=== PATIENT | female | born 1935 | race Caucasian/White ===

== ENCOUNTER 2020-11-23 15:05 | Emergency (ER) | payer MEDICARE, SELFPAY ==
[2020-11-23] VITALS (7 sets, daily range): BP systolic 109–149; BP diastolic 61–91; PULSE 70–74; RESP 14–19; TEMP 36.3–36.7; O2SAT 97–100
--- NOTE | ~2020-11-23 | XR_ITS ---
EXAMINATION: XR chest 1V portable DATE: 11/23/2020 16:47 INDICATION: Shortness of breath. TECHNIQUE: A single frontal view of the chest was obtained. COMPARISON: Chest single view 07/23/2019 FINDINGS: There is mild atelectasis in right lower lung zone. No pleural effusion or pneumothorax. Ca rdiomegaly is noted. There is a left chest pacer with leads in right atrium and right ventricle. Ther e are 2 additional retained leads in right ventricle. IMPRESSION: 1. Mild atelectasis in right lower lung zone. 2. Cardiomegaly. Reviewed, dictated and finalized at location A. ATION SPECIALIST
--- NOTE | 2020-11-23 16:08 | ECG_ITS ---
Measurements Intervals [place] Rate: 70 P: ME: 0 QRS: 180 QRSD: 155 T: 180 QT: 437 QTc: 472 Interpretive Statements ELECTRONIC VENTRICULAR PACEMAKER NO FURTHER INTERPRETATION IS POSSIBLE ATYPICAL ECG Electronically Signed On 11-23-2020 17:26:21 CALENDER FEEDER by Pradeep Peralta D.O.
[2020-11-23 16:25] LABS: Basophils Percent Auto 0.1 % (0.2-1.2); Eosinophils Percent Auto 0.1 % (0-4.4); Hematocrit 34.3 % (37.0-47.0); Hemoglobin 11.3 g/dL (12.0-15.0); Immature Granulocyte Absolute 0.26 K/mm3 (0.00-0.031); Lymphocytes Percent Auto 8.3 % (18.3-44.2); Mean Corpuscular HGB Conc 32.9 g/dl (32-36); Mean Corpuscular Hemoglobin 32.8 pg (26-34); Mean Corpuscular Volume 99.7 fl (80-100); Mean Platelet Volume 11.8 fl (7.4-10.4); Monocytes Absolute Auto 0.7 K/mm3 (0.1-0.6); Monocytes Percent Auto 5.1 % (2.6-8.5); Neutrophils Absolute Auto 11.2 K/mm3 (1.3-6.7); Neutrophils Percent Auto 84.4 % (45.5-73.1); Platelet Count Result 166 k/mm3 (150-375); Red Blood Count 3.44 M/mm3 (4.2-5.4); Red Cell Distribution Width 16.6 % (11.5-14.5); White Blood Count 13.2 K/mm3 (4.5-10.0)
[2020-11-23 16:37] LABS: Anion Gap 3 mmol/L (8-16); Blood Urea Nitrogen 34 mg/dL (7-17); Calcium 9.8 mg/dL (8.4-10.2); Carbon Dioxide 30 mmol/L (22-30); Chloride 104 mmol/L (98-107); Estimated CRCL calculation 32 ml/min; Estimated Glomerular Filt Rate 47; Glucose 124 mg/dL (65-105); Sodium 137 mmol/L (137-145)
--- NOTE | 2020-11-23 16:55 | ED.SOB ---
HPI - SOB/Dyspnea General Chief Complaint: Shortness of Breath/Dyspnea Stated Complaint: sob Time Seen by Provider: 11/23/20 16:42 Source: patient Mode of arrival: ambulatory Limitations: no limitations History of Present Illness HPI Narrative: An 85-year-old female presents to the emergency department today with complaints of shortness of breath. Patient states that she sitting, and at rest she feels fine. She notes when she gets up and moves around she gets very dyspneic. She denies orthopnea. Patient does state that she has a history of congestive heart failure and has been taking her diuretics and other medications appropriately. She does endorse a little chest pain states that it is generalized and nonspecific. She denies any fevers, chills, cough or abdominal symptoms. She denies any peripheral swelling as well. Related Data Allergies Allergy/AdvReac Type Severity Reaction Status Date / Time No Known Allergies Allergy Verified 11/23/20 16:26 Review of Systems Review of Systems: Narrative: CONSTITUTIONAL: Denies fever, chills, or sweats. EYES: Denies visual changes, redness, or discharge. ENT: Denies rhinorrhea, congestion, sore throat, or otalgia. CARDIOVASCULAR: Denies palpitations, or edema. Patient does endorse chest tightness. RESPIRATORY: Endorses dyspnea with exertion. GASTROINTESTINAL: Denies abdominal pain, nausea, vomiting, or diarrhea. GENITOURINARY: Denies dysuria or hematuria. SKIN: Denies rash or itching. MUSCULOSKELETAL: Denies back pain, joint pain, or myalgia. NEUROLOGIC: Denies headache, numbness, dizziness, or weakness. PSYCHIATRIC: Denies anxiety or depression. [facility], [facility] Family History Family History Mother Family history of malignant neoplasm of cervix Father Family history of coronary artery disease Hypertension Social History Social History Smoking status: Never smoker Alcohol intake: current Exam Narrative: Exam Narrative: GENERAL: Well-appearing, well-nourished, and in no acute distress. HEAD: Normocephalic, atraumatic. EYES: PERRLA and EOMI. ENT: Nares clear, no rhinorrhea or epistaxis. Mucous membranes moist. Oropharynx without tonsillar hypertrophy exudate or other lesions. Bilateral TMs pearly [place] nonbulging NECK: Supple. No adenopathy or masses. No carotid bruits or JVD CHEST: Clear to auscultation. No respiratory distress. No wheezes rales or rhonchi HEART: Regular rate and rhythm. No murmur heard. Normal peripheral pulses. ABDOMEN: Soft, nontender, nondistended, normal active bowel sounds. EXTREMITIES: Normal range of motion. No edema. SKIN: Warm, dry, no rash. NEURO: No focal deficits. Alert and oriented x3. PSYCH: Normal mood and affect. Course Reevaluation(s) Reevaluation #1: Patient still resting comfortably at this time. I had a discussion with the patient, her son and daughter regarding disposition options. Patient while at rest her vital signs are normal. I do feel that she is likely suffering from a CHF exacerbation. My treatment plan and offer was an IV bigger dose of her Lasix and follow-up with her primary care physician or head of marketing. I did offer to bring her in for observation but explained that the hospital is very full and while I would be more than happy to admit her, she would likely be staying in the ER for most of the night. Patient patient is weighed the options with her son and daughter all were in agreement for a bigger dose of IV Lasix, discharge home and follow-up. Time: 18:34 Vital Signs Vital signs: Vital Signs Temperature 36.3 C L 11/23/20 16:09 Pulse Rate 70 11/23/20 16:09 Respiratory Rate 14 11/23/20 16:09 Blood Pressure 144/91 H 11/23/20 16:09 Pulse Oximetry 99 11/23/20 16:09 Temperature 36.3 C L 11/23/20 16:09 Pulse Rate 70 11/23/20 20:10 Respiratory Rate 19 11/23/20 20:10 Blood Pressure 123/67 01
[2020-11-23 18:05] LABS: NT Pro B Type Natriuretic Pept 3570 PG/ML (5-100)
[2020-11-23] MEDS: FUROSEMIDE INJ 100 MG/10 ML VIAL 80 MG IV PUSH (18:52)
== END 2020-11-23 20:59 | disposition home or self-care (01) ==
PROVIDERS: Emergency Medicine; Emergency Provider Emergency Medicine; PCP Internal Medicine
DX: I50.9 Heart failure, unspecified (principal); Z95.0 Presence of cardiac pacemaker; I51.7 Cardiomegaly; R91.8 Other nonspecific abnormal finding of lung field
CPT/HCPCS: 36415; 71045; 80048; 83880; 84484; 85025; 93005; 96374; 99284; J1940

== ENCOUNTER → 2020-12-18 12:51 | Outpatient (CLI) | payer MEDICARE, SELFPAY ==
--- NOTE | ~2020-12-18 | CT_ITS ---
EXAMINATION: CT lumbar spine wo [facility] EXAM DATE: 12/18/2020 13:11 INDICATION: Lumbar radiculopathy. Bilateral leg and hip pain. TECHNIQUE: Spiral CT of the lumbar spine was performed without contrast. Axial, coronal and sagittal images were reviewed. The dose-length product (DLP) for this examination was 754.75 mGy-cm. The e xposure was tailored according to patient size (auto mA exposure control), and iterative reconstructi on (ASIR) was used as additional dose reduction technique. There is no prior study for comparison. FINDINGS: Pacemaker/AICD device. There is moderate to severe disc disease from L2 through S1, moderat e at L1-2. There is 6 mm anterolisthesis L4 on L5 and 3 mm anterolisthesis L5 on S1. No spondylolysis . Vertebral body heights are maintained. There are no acute fractures identified. Paraspinal soft tis meghann is unremarkable. Level by level evaluation: T11-12: There is a mild diffuse disc bulge. Facet arthropathy: Mild. Neural foraminal stenosis: Mild left. Central canal stenosis: No stenosis. T12-L1: There is a mild diffuse disc bulge. Facet arthropathy: Mild. Neural foraminal stenosis: No stenosis. Central canal stenosis: No stenosis. L1-L2: There is a moderate diffuse disc bulge. Facet arthropathy: Moderate. Neural foraminal stenosis: Moderate right, mild to moderate left. Central canal stenosis: Mild to moderate. L2-L3: There is a moderate to large diffuse disc bulge. Facet arthropathy: Moderate to severe. Neural foraminal stenosis: Moderate to severe right, moderate left. Central canal stenosis: Mild to moderate. L3-L4: There is a moderate diffuse disc bulge. Facet arthropathy: Moderate to severe. Neural foraminal stenosis: Moderate to severe left, mild to moderate right. Central canal stenosis: Moderate. L4-L5: There is a large diffuse disc bulge. Facet arthropathy: Severe. Neural foraminal stenosis: Severe left, moderate right. Central canal stenosis: Moderate to severe. L5-S1: There is a moderate diffuse disc bulge. Facet arthropathy: Severe. Neural foraminal stenosis: Moderate bilateral. Central canal stenosis: Mild. IMPRESSION: 1. Advanced lumbar spondylosis. Reviewed, dictated and finalized at location B. WIRE ALINER
== END ==
PROVIDERS: PCP Internal Medicine; Visit Provider Nurse Practitioner Adult Health
DX: M47.26 Other spondylosis with radiculopathy, lumbar region (principal)
CPT/HCPCS: 72131

== ENCOUNTER 2021-01-01 18:05 | Emergency (ER) | payer MEDICARE, SELFPAY ==
--- NOTE | ~2021-01-01 | CT_ITS ---
EXAMINATION: CT brain wo con EXAM DATE: 01/01/2021 22:12 INDICATION: Weakness. TECHNIQUE: Spiral CT of the head was performed without contrast. Axial, coronal and sagittal images were reviewed. The dose-length product (DLP) for this examination was 605.33 mGy-cm. The exposure w as tailored according to patient size, and iterative reconstruction (ASIR) was used as additional dos e reduction technique. Comparison is made to prior examination from 01/27/2014. FINDINGS: There is no acute intraparenchymal hemorrhage. No evidence of intraparenchymal brain mass lesion. No evidence of acute infarction. Please note that initial head CT has limited sensitivity f or small or acute infarctions. There is moderate periventricular and subcortical hypodensity, nonspec ific but probably related to small vessel ischemic disease. There is moderate prominence of the sul ci and ventricles related to cerebral atrophy. There is intracranial carotid arteriosclerosis. The re are no extra-axial collections. There is no mass effect or midline shift. Patient has had bilate ral ocular lens surgery. Soft tissue is unremarkable. The visualized sinuses and mastoid air cells are well aerated. IMPRESSION: 1. No acute intracranial findings. 2. Chronic age related findings. Reviewed, dictated and finalized at location A. ERY CLERK
--- NOTE | ~2021-01-01 | XR_ITS ---
EXAMINATION: XR chest 2V EXAM DATE: 01/01/2021 18:50 INDICATION: Shortness of breath. Weakness. History of diabetes. TECHNIQUE: Frontal and lateral projections of the chest obtained and reviewed. Comparison is made to prior examination from 11/23/2020. FINDINGS: Multiple pacemaker leads, 2 of which might be for the current pacemaker and 2 may be from an old pacemaker. There is cardiomegaly. No confluent consolidation, pneumothorax or pleural effusion suspected. Mild hyperinflation. There is aortic arteriosclerosis. There are mild bony degenerative c hanges. IMPRESSION: Cardiomegaly. Reviewed, dictated and finalized at location A. ICATION TESTER IMPRESSION: Cardiomegaly.
--- NOTE | 2021-01-01 18:10 | ECG_ITS ---
Measurements Intervals [place] Rate: 70 P: [place]: 0 QRS: 166 QRSD: 152 T: -21 QT: 416 QTc: 449 Interpretive Statements ELECTRONIC VENTRICULAR PACEMAKER BASELINE ARTIFACT- I, II, III, AVR, AVL, AVF, V1-V3 NO FURTHER INTERPRETATION IS POSSIBLE ATYPICAL ECG Electronically Signed On 01-02-2021 7:59:37 DISPATCH ASSOCIATE by Pradeep Peralta D.O.
[2021-01-01 18:11] VITALS: BP 112/81; PULSE 70; RESP 18; TEMP 35.7; O2SAT 100
[2021-01-01 18:36] LABS: Basophils Percent Auto 0.3 % (0.2-1.2); Eosinophils Absolute Auto 0.1 K/mm3 (0-0.3); Eosinophils Percent Auto 1.3 % (0-4.4); Hematocrit 37.3 % (37.0-47.0); Hemoglobin 12.1 g/dL (12.0-15.0); Immature Granulocyte Percent A 1.1 % (0-0.5); Lymphocytes Absolute Auto 0.89 K/mm3 (0.9-3.2); Lymphocytes Percent Auto 9.9 % (18.3-44.2); Mean Corpuscular HGB Conc 32.4 g/dl (32-36); Mean Corpuscular Hemoglobin 32.8 pg (26-34); Mean Corpuscular Volume 101.1 fl (80-100); Mean Platelet Volume 11.4 fl (7.4-10.4); Monocytes Absolute Auto 0.4 K/mm3 (0.1-0.6); Monocytes Percent Auto 4.8 % (2.6-8.5); Neutrophils Absolute Auto 7.5 K/mm3 (1.3-6.7); Neutrophils Percent Auto 82.6 % (45.5-73.1); Nucleated Red Blood Cells Perc 0.2 % (0.0-0.2); Platelet Count Result 192 k/mm3 (150-375); Red Blood Count 3.69 M/mm3 (4.2-5.4); Red Cell Distribution Width 16.4 % (11.5-14.5)
[2021-01-01 18:50] LABS: Alanine Aminotransferase 28 U/L (4-35); Albumin Level 3.7 g/dL (3.5-5.1); Alkaline Phosphatase 71 U/L (38-126); Anion Gap 5 mmol/L (8-16); Aspartate Amino Transferase 38 U/L (14-36); Bilirubin,Total 0.7 mg/dL (0.2-1.3); Blood Urea Nitrogen 24 mg/dL (7-17); Carbon Dioxide 31 mmol/L (22-30); Chloride 102 mmol/L (98-107); Estimated CRCL calculation 29 ml/min; Estimated Glomerular Filt Rate 47; Glucose 97 mg/dL (65-105); Potassium 3.5 mmol/L (3.4-5.0); Sodium 138 mmol/L (137-145)
[2021-01-01 21:11] VITALS: BP 140/68; PULSE 70; RESP 21; O2SAT 94
[2021-01-01] MEDS: SODIUM CHLORIDE 0.9% IV 1,000 ML 500 ML IV CONT (21:41)
[2021-01-01 21:51] LABS: Lactic Acid Reflex 0.9 mmol/L (0.7-2.1)
[2021-01-01 22:03] LABS: Troponin I < 0.012 ng/mL (0.000-0.034)
[2021-01-01 22:15] LABS: Add Urine Microscopic? YES; Appearance Urine Clear (Clear); Bilirubin Urine Negative (Negative); Blood Urine Negative (Negative); Color Urine Yellow (Yellow); Glucose Urine UA Negative (Negative); Ketones Urine Negative (Negative); Leukocyte Esterase Ur 2+ LEU/UL (Negative); Mucus Urine Rare /lpf; Nitrate Urine Negative (Negative); Protein Urine Negative (Negative); RBC Urine 0-2 /hpf (0-2); Specific Grav Ur 1.011 (1.001-1.035); Urobilinogen Urine Negative mg/dL (<2.0)
--- NOTE | 2021-01-01 23:50 | ED.GENADULT ---
HPI - General Adult General Chief complaint: Weakness Stated complaint: weakness x 2 days Time Seen by Provider: 01/01/21 21:15 History of Present Illness HPI narrative: Patient is a 85-year-old female who presents the emergency department with chief complaint of generalized weakness. The patient reports that she had her Covid shot yesterday she also has been on gabapentin and stated that today she felt very weak and had a difficult time walking around. Patient states that it was over her entire body that she felt shaky and also felt as though her legs would not move correctly. The patient states that she had no discrete focal deficit stated it was more global. Patient denies fever denies chills denies shortness of breath. Related Data Home Medications Medication Instructions Recorded Confirmed allopurinol 01/01/21 fluoxetine mg 01/01/21 gabapentin 01/01/21 hydrocodone-acetaminophen 01/01/21 01/01/21 levothyroxine 01/01/21 simvastatin mg 01/01/21 Allergies Allergy/AdvReac Type Severity Reaction Status Date / Time No Known Allergies Allergy Verified 01/01/21 21:13 Review of Systems Review of Systems: Narrative: A 10 system review of systems was completed on the patient and is negative except for what is stated in the HPI. Nursing and ancillary documentation was reviewed. [facility] Family History Family History Mother Family history of malignant neoplasm of cervix Father Family history of coronary artery disease Hypertension Social History Social History Smoking status: Never smoker Alcohol intake: current Gender identity (if verbalized by the patient): Female Comments Patient has history of lung disease Exam Narrative: Exam Narrative: GENERAL: Well-appearing, well-nourished, and in no acute distress. HEAD: Normocephalic, atraumatic. EYES: PERRLA and EOMI. ENT: Nares clear, no rhinorrhea or epistaxis. Mucous membranes moist. NECK: Supple. CHEST: Clear to auscultation. No respiratory distress. HEART: Regular rate and rhythm. No murmur heard. Normal peripheral pulses. ABDOMEN: Soft, nontender, nondistended, normal active bowel sounds. EXTREMITIES: Normal range of motion. No edema. SKIN: Warm, dry, no rash. NEURO: No focal deficits. Alert and oriented x3. PSYCH: Normal mood and affect. Course Course Emergency Course: Patient is feeling much better at this time patient was able to ambulate without difficulty in the emergency department. Vital Signs Vital signs: Vital Signs Temperature 35.7 C L 01/01/21 18:11 Pulse Rate 70 01/01/21 18:11 Respiratory Rate 18 01/01/21 18:11 Blood Pressure 112/81 01/01/21 18:11 Pulse Oximetry 100 01/01/21 18:11 Temperature 35.7 C L 01/01/21 18:11 Pulse Rate 70 01/01/21 21:11 Respiratory Rate 21 H 01/01/21 21:11 Blood Pressure 140/68 01/01/21 21:11 Pulse Oximetry 94 01/01/21 21:11 Medical Decision Making Vital Signs Vital Signs: Vital Signs Temperature 35.7 C L 01/01/21 18:11 Pulse Rate 70 01/01/21 18:11 Respiratory Rate 18 01/01/21 18:11 Blood Pressure 112/81 01/01/21 18:11 Pulse Oximetry 100 01/01/21 18:11 Temperature 35.7 C L 01/01/21 18:11 Pulse Rate 70 01/01/21 21:11 Respiratory Rate 21 H 01/01/21 21:11 Blood Pressure 140/68 01/01/21 21:11 Pulse Oximetry 94 01/01/21 21:11 Lab Data Result diagrams: 01/01/21 18:18 01/01/21 18:18 Labs: Lab Results 01/01/21 01/01/21 01/01/21 Range/Units 18:18 18:18 21:35 WBC 9.0 (4.5-10.0) K/mm3 RBC 3.69 L (4.2-5.4) M/mm3 Hgb 12.1 (12.0-15.0) g/dL Hct 37.3 (37.0-47.0) % MCV 101.1 H (80-100) fl MCH 32.8 (26-34) pg MCHC 32.4 (32-36) g/dl RDW 16.4 H (11.5-14.5) % Plt Count 192 (150-375) k/mm3 MPV 11.4 H (7.4-10.4) fl Immature Gr
[2021-01-01 23:53] VITALS: BP 157/74; PULSE 70; RESP 16; TEMP 36.8; O2SAT 96
== END 2021-01-02 00:09 ==
PROVIDERS: Emergency Medicine; Emergency Provider Emergency Medicine; PCP Internal Medicine
DX: N39.0 Urinary tract infection, site not specified (principal); R53.1 Weakness
CPT/HCPCS: 36415; 51701; 70450; 71046; 80053; 81001; 83605; 84484; 85025; 87077; 87086; 87088; 87186; 93005; 96360; 96361; 99284; J7030

== ENCOUNTER 2021-02-15 20:42 | Observation (INO) | payer MEDICARE, SELFPAY ==
--- NOTE | ~2021-02-15 | XR_ITS ---
EXAMINATION: XR chest 2V EXAM DATE: 02/17/2021 14:33 INDICATION: Leukocytosis, confusion. TECHNIQUE: Frontal and lateral projections of the chest obtained and reviewed. Comparison is made to prior examination from 01/01/2021. FINDINGS: There is a left-sided pacemaker. There are multiple leads. Mild cardiomegaly. There is no pneumothorax suspected. There are no pleural effusions. No acute airspace disease identified. There i s aortic arteriosclerosis. IMPRESSION: Cardiomegaly, unchanged. Reviewed, dictated and finalized at location A. IMPRESSION: Cardiomegaly, unchanged.
--- NOTE | ~2021-02-15 | CT_ITS ---
EXAMINATION: CT brain wo con DATE: 02/17/2021 13:22 INDICATION: Altered mental status. TECHNIQUE: Computed tomography (CT) of the head was performed without intravenous contrast. The mA wa s adjusted according to patient size. Iterative reconstruction technique was employed. Exam dose: 60 5.33 mGy-cm total exam DLP. COMPARISON: 01/01/2021 CT brain FINDINGS: No intracranial mass lesion or hemorrhage or cerebrovascular accident is evident. There is no midline shift or mass effect effect. There is central and cortical cerebral and cerebellar atrophy. There is nonspecific prominent diminis hed attenuation of the subcortical and periventricular cerebral white matter, likely due to chronic s mall vessel ischemic changes. Prominent bilateral carotid siphon and bilateral vertebral artery calci fications and basilar artery calcification are noted. No subdural or epidural hematoma is detected. No fracture or bone destruction of the cranial vault. Included paranasal sinuses and mastoid air cells are normally developed and aerated. IMPRESSION: Cerebral atherosclerosis and chronic small vessel ischemic changes of cerebral white mat ter Central and cortical cerebral and cerebellar atrophy. Reviewed, dictated and finalized at Location A. Reviewed, dictated and finalized at location A. IMPRESSION: Cerebral atherosclerosis and chronic small vessel ischemic changes of cerebral white matter Central and cortical cerebral and cerebellar atrophy.
--- NOTE | ~2021-02-15 | XR_ITS ---
EXAMINATION: XR knee RT min 4V DATE: 02/15/2021 21:56 INDICATION: Right knee pain, initial encounter TECHNIQUE: Four views of the right knee were obtained. COMPARISON: None. FINDINGS: The bones are osteopenic which limits the sensitivity for fracture however none is seen. A large joint effusion is present. Chondrocalcinosis is noted. Soft tissues are unremarkable. IMPRESSION: 1. Large knee joint effusion without acute osseous abnormality identified, sensitivity limited by ost eopenia. Reviewed, dictated and finalized at location A. IMPRESSION: 1. Large knee joint effusion without acute osseous abnormality identified, sens itivity limited by osteopenia.
[2021-02-15 20:44] VITALS: BP 122/68; PULSE 71; RESP 20; TEMP 37; O2SAT 92
[2021-02-15 21:00] VITALS: BP 148/70; PULSE 70; RESP 20; O2SAT 95
--- NOTE | 2021-02-15 23:23 | PC.NURSE ---
Charge nurse spoke with She[facility] - Patient is already living in the [facility] facility and they would be able to accept her back even if she has increasing weakness and needed more hands on care. ERP Dr. Brown notified.
[2021-02-15 23:24] VITALS: BP 175/86; PULSE 70; RESP 20; O2SAT 91
--- NOTE | 2021-02-15 23:27 | PC.NURSE ---
Report given to Elijah TORRES. He assumed care of this patient at this time.
--- NOTE | 2021-02-15 23:57 | ED.LOWEXIN ---
HPI - Extremity Injury (Lower) General Chief Complaint: Extremity Injury, Lower <Robb Brown MD - Last Filed: 02/16/21 00:06> Stated Complaint: glf yest - rt knee pain and swelling today <Robb Brown MD - Last Filed: 02/16/21 00:06> Time Seen by Provider: 02/15/21 20:49 <Robb Brown MD - Last Filed: 02/16/21 00:06> Source: patient and family <Robb Brown MD - Last Filed: 02/16/21 00:06> Mode of arrival: EMS <Robb Brown MD - Last Filed: 02/16/21 00:06> Limitations: no limitations <Robb Brown MD - Last Filed: 02/16/21 00:06> History of Present Illness HPI Narrative: 85-year-old female Patient is a resident at [facility] Last she was leaving [facility] and fell and injured her right knee She is not sure if she landed on it or if she twisted it, she just knows that it is become progressively painful since then and she cannot put weight on it anymore It sounds like this morning she had an x-ray done but the results of that are unknown and her doctor at [facility] looked at it and thought she should go to the ER to have an orthopedic assessment and maybe a PT OT assessment and maybe an arthrocentesis There does seem to be some confusion about her level of care at [facility], her son is very worried that it takes 2 people to transfer her that she is in independent living setting and that assistance is not available to her, her manager wastewater thinks that she needs 2 days in the hospital in order to access a rehab level of care, but in discussing with supervisors at [facility] they said she is already in a long-term care area and they can take care of of whatever she needs as far as assistance goes Interestingly allopurinol is among her medications but there is no mention of hyperuricemia or gout amongst her medical problem list <Robb Brown MD - Last Filed: 02/16/21 00:06> Related Data Home Medications: Home Medications Medication Instructions Recorded Confirmed allopurinol 01/01/21 fluoxetine mg 01/01/21 gabapentin 01/01/21 hydrocodone-acetaminophen 01/01/21 01/01/21 levothyroxine 01/01/21 simvastatin mg 01/01/21 <Robb Brown MD - Last Filed: 02/16/21 00:06> Allergies/Adverse Reactions: Allergies Allergy/AdvReac Type Severity Reaction Status Date / Time No Known Allergies Allergy Verified 01/01/21 21:13 <Robb Brown MD - Last Filed: 02/16/21 00:06> Review of Systems Review of Systems: All systems reviewed & are unremarkable except as noted in HPI and below <Robb Brown MD - Last Filed: 02/16/21 00:06> Constitutional: Constitutional: Reports no additional constitutional complaints, Denies chills, Denies fever(s), Denies headache(s) and Reports weakness <Robb Brown MD - Last Filed: 02/16/21 00:06> Eyes: Eyes: Reports no additional eye complaints and Denies change in vision <Robb Brown MD - Last Filed: 02/16/21 00:06> ENT: Denies headache(s) and Denies sore throat <Robb Brown MD - Last Filed: 02/16/21 00:06> Cardiovascular: Cardiovascular: Denies chest pain and Denies dyspnea <Robb Brown MD - Last Filed: 02/16/21 00:06> Respiratory: Respiratory: Denies cough and Denies dyspnea <Robb Brown MD - Last Filed: 02/16/21 00:06> Gastrointestinal: Gastrointestinal: Denies abdominal pain, Denies diarrhea and Denies vomiting <Robb Brown MD - Last Filed: 02/16/21 00:06> Genitourinary: Genitourinary: Denies urinary frequency and Denies dysuria <Robb Brown MD - Last Filed: 02/16/21 00:06> Musculoskeletal: Musculoskeletal: Denies deformity, Reports arthralgias, Reports joint swelling and Denies numbness <Robb Brown MD - Last Filed: 02/16/21 00:06> Comments: She also has left knee problems <Robb Brown MD - Last Filed: 02/16/21 00:06> Integumentary/Breasts: Skin/Breast: Denies rash and Denies wounds <Robb Brown MD - Last Filed: 02/16/21 00:06> Neurologic: Nima
[2021-02-16] VITALS (7 sets, daily range): BP systolic 148–166; BP diastolic 57–75; PULSE 68–76; RESP 16–18; TEMP 36–36.6; O2SAT 94–98; BMI 31.3
[2021-02-16] MEDS: COLCHICINE 0.6 MG TABLET 1.2 MG PO (00:55)
[2021-02-16 01:28] LABS: Appearance Synovial Fluid Hazy (Clear); Color Synovial Fluid Yellow (Colorless); Source Synovial Fluid Synovial fluid
[2021-02-16 01:29] LABS: Lymphocytes Synovial Fluid 2 %; Monocytes Synovial Fluid 1 %; Neutrophils Synovial Fluid 97 % (0-25); Nucleated Cell Synovial Fluid 2057 /uL (0-200); RBC Synovial Fluid 3213 /uL (0-0)
[2021-02-16 01:32] LABS: Crystals Synovial Fluid Few Msu (None Seen)
[2021-02-16 01:55] LABS: Basophils Absolute Auto 0.1 K/mm3 (0.0-0.1); Basophils Percent Auto 0.5 % (0.2-1.2); Eosinophils Absolute Auto 0.1 K/mm3 (0-0.3); Eosinophils Percent Auto 0.3 % (0-4.4); Hematocrit 36.4 % (37.0-47.0); Hemoglobin 11.8 g/dL (12.0-15.0); Immature Granulocyte Absolute 0.06 K/mm3 (0.00-0.031); Immature Granulocyte Percent A 0.4 % (0-0.5); Lymphocytes Absolute Auto 2.15 K/mm3 (0.9-3.2); Mean Corpuscular HGB Conc 32.4 g/dl (32-36); Mean Corpuscular Hemoglobin 31.7 pg (26-34); Mean Corpuscular Volume 97.8 fl (80-100); Mean Platelet Volume 11.6 fl (7.4-10.4); Monocytes Absolute Auto 1.5 K/mm3 (0.1-0.6); Monocytes Percent Auto 9.7 % (2.6-8.5); Neutrophils Absolute Auto 11.6 K/mm3 (1.3-6.7); Neutrophils Percent Auto 75.1 % (45.5-73.1); Platelet Count Result 208 k/mm3 (150-375); Red Blood Count 3.72 M/mm3 (4.2-5.4); Red Cell Distribution Width 14.2 % (11.5-14.5); White Blood Count 15.4 K/mm3 (4.5-10.0)
[2021-02-16 02:27] LABS: INR 2.9; Prothrombin Time 30.8 Seconds (11.1-14.7)
[2021-02-16 02:58] LABS: Erythrocyte Sedimentation Rate 90 mm/hr (0-20)
[2021-02-16 04:24] LABS: Anion Gap 5 mmol/L (8-16); Blood Urea Nitrogen 23 mg/dL (7-17); CRP 25.1 mg/dL (<1.0); Calcium 10.4 mg/dL (8.4-10.2); Carbon Dioxide 39 mmol/L (22-30); Chloride 97 mmol/L (98-107); Estimated Glomerular Filt Rate 47; Glucose 130 mg/dL (65-105); Potassium 3.6 mmol/L (3.4-5.0); Sodium 141 mmol/L (137-145); Uric Acid 5.5 mg/dL (2.5-7.5)
--- NOTE | 2021-02-16 04:43 | PM.IMHP ---
H&P: HPI History of Present Illness Date/Time: 02/16/21 04:43 Chief Complaint: Right knee pain and swelling++ Narrative: This is a pleasant 85-year-old obese female with known history hypothyroidism, hyperlipidemia, and chronic anticoagulation who presented to the hospital with right knee pain and swelling for the past 5 days. The patient suffered a mechanical fall 5 days ago as she was leaving [facility]. She describes walking out of [place] on her walker and her walker slid in front of her and she fell on her right knee. She denies passing out or suffering any other type of trauma. The patient has already been getting therapy for left knee and since her fall she has had worsening swelling and pain of her right knee. She denies any headache, fever, chills, shortness of breath, cough, sore throat, abdominal pain, nausea, vomiting, dysuria, hematuria, diarrhea, or rectal bleeding. The patient is known to be chronically anticoagulated and when I ask her why she is anticoagulated she tells me that it is because she has a pacemaker. She has had increased difficulty with her activities of daily living as she cannot ambulate on her own with her knee pain and swelling. In the ER tonight the patient had her knee aspirated and was started on antibiotics empirically. Ortho was consulted by ER provider. We were asked to admit the patient to the hospital as she has ambulatory dysfunction and cannot possibly go back to her assisted living. Review of Systems Review of Systems: All systems reviewed & are unremarkable except as noted in HPI and below PMFSH Past Medical History Medical History (Updated 02/16/21 @ 06:00 by Rich Prasad MD) Atrial fibrillation Chronic anemia Chronic anticoagulation Gout Heart failure Hyperlipidemia Hypertension Hypothyroidism Pacemaker Family History Family History Mother Family history of malignant neoplasm of cervix Father Family history of coronary artery disease Hypertension Social History Social History Smoking status: Never smoker Alcohol intake: current Gender identity (if verbalized by the patient): Female Spiritual care concerns: No Comments Past surgical history includes pacemaker insertion Meds Home Medications and Allergies Home Medications Medication Instructions Recorded Confirmed Type levothyroxine 01/01/21 History simvastatin mg 01/01/21 History Mucinex 600 mg PO Q12H 02/16/21 02/16/21 History Vitamin D3 125 mcg PO DAILY 02/16/21 02/16/21 History acetaminophen 1,000 mg PO Q12H PRN 02/16/21 02/16/21 History allopurinol 100 mg PO BID 02/16/21 02/16/21 History aspirin 1 tablet PO DAILY 02/16/21 02/16/21 History carvedilol 12.5 mg PO BID 02/16/21 02/16/21 History duloxetine 20 mg PO DAILY 02/16/21 02/16/21 History furosemide 40 mg PO BID 02/16/21 02/16/21 History quinapril 20 mg PO BID 02/16/21 02/16/21 History tramadol 50 mg PO Q8H PRN 02/16/21 02/16/21 History warfarin 4 mg PO USEASDIRECTD 02/16/21 02/16/21 History Allergies Allergy/AdvReac Type Severity Reaction Status Date / Time No Known Allergies Allergy Verified 01/01/21 21:13 Vital Signs Vital Signs - 24 hr 02/15/21 20:44 02/15/21 21:00 02/15/21 23:24 Temperature 37.0 C Pulse Rate 71 70 70 Respiratory Rate 20 20 20 Blood Pressure 122/68 148/70 H 175/86 H Pulse Oximetry 92 95 91 02/16/21 00:58 02/16/21 03:10 02/16/21 04:29 Temperature Pulse Rate 70 68 70 Respiratory Rate 18 18 18 Blood Pressure 158/72 H 161/75 H 152/67 H Pulse Oximetry 97 97 97 Exam Const: General: cooperative, no acute distress, alert and awake Nutritional Appearance: well nourished Orientation/consciousness: patient oriented x3 HENMT: Head: normal to inspection General nose exam: Normal external nose present Face and sinus: normal facial exam Mouth: Yes Normal oral and palatal mucosa presen
--- NOTE | 2021-02-16 05:48 | ADMGEN ---
This patient, Marisol Meza, was admitted to 3 Med Surg Room 331-01. Patient/family oriented to hospital policies and general routines including ID bracelet, bed and alarms, visiting hours, pain management, procedures, bathroom and other care routines, personal items, smoking policy, room service/diet, and visiting hours. Information on how to activate the Rapid Response Team has been discussed. Patient/Family are encouraged to report perceived risks to care and to ask questions if they do not understand what they are told or what they should do.
[2021-02-16 06:28] LABS: Glucose Point of Care 121 (65-105)
[2021-02-16] MEDS: HYDROcodone/acetaminophen (*CRX) 5-325 MG TABLET 1 TAB PO (07:36)
--- NOTE | 2021-02-16 09:37 | PM.CNOR ---
Assessment and Plan Assessment and plan (1) Arthritis of right knee: Code(s): M17.11 - Unilateral primary osteoarthritis, right knee Status: Acute (2) Effusion of right knee joint: Code(s): M25.461 - Effusion, right knee Status: Acute Assessment and Plan: aspiration done early this morning in the emergency room shows acute inflammation without organisms. Cultures pending. Elevated white count, CRP consistent with inflammation of unknown origin. Patient does have a history of gout however her uric acid is in the normal level. She seems to have some sort of systemic process which has been going for the past 2 to 3 months. Somewhat better right knee after aspiration. Recommend pain control and mobilized with the assistance of physical therapy and occupational therapy. Will continue to follow knee aspirate cultures. May be weight-bearing as tolerated. (3) Inflammation around joint: Code(s): M77.9 - Enthesopathy, unspecified Status: Acute History of Present Illness HPI Consult date: 02/16/21 Requesting physician: Cesar Olivia MD Chief complaint: Right knee joint effusion, unable to ambulate Narrative: 85-year-old woman admitted through the emergency room last night with increasing right knee pain and swelling. Patient has noted diffuse pain in bilateral upper and lower extremities for the past 2 to 3 months. She has been to pain management With minimal relief. She is in independent living at a care facility. She was doing rehab. They noted increased pain and swelling of her right knee. She presented to the emergency room. Aspiration performed. She states knee pain is slightly better after the aspiration. She has difficulty with mobilization still feels as if she needs assistance with transfers And getting out of bed. Review of Systems Constitutional: Constitutional: Reports no additional constitutional complaints, Denies chills, Denies fever(s), Denies headache(s) and Reports weakness Eyes: Eyes: Reports no additional eye complaints and Denies change in vision ENT: Denies headache(s) and Denies sore throat Cardiovascular: Cardiovascular: Denies chest pain and Denies dyspnea Respiratory: Respiratory: Denies cough and Denies dyspnea Gastrointestinal: Gastrointestinal: Denies abdominal pain, Denies diarrhea and Denies vomiting Genitourinary: Genitourinary: Denies urinary frequency and Denies dysuria Musculoskeletal: Musculoskeletal: Denies deformity, Reports arthralgias, Reports joint swelling and Denies numbness Integumentary/Breasts: Skin/Breast: Denies rash and Denies wounds Neurologic: Denies headache(s), Denies focal weakness and Denies numbness Psychiatric: Psychiatric: Reports no additional psychiatric complaints Endocrine: Endocrine: Reports no additional endocrine complaints Hematologic/Lymphatic: Hematologic/Lymphatic: Reports no additional hematologic/lymphatic complaints Allergic/Immunologic: Allergic/Immunologic: Reports no additional allergic/immunologic complaints PMFSH Past Medical History Medical History Atrial fibrillation Chronic anemia Chronic anticoagulation Gout Heart failure Hyperlipidemia Hypertension Hypothyroidism Pacemaker Family History Family History Mother Family history of malignant neoplasm of cervix Father Family history of coronary artery disease Hypertension Social History Social History Smoking status: Never smoker Alcohol intake: current Gender identity (if verbalized by the patient): Female Spiritual care concerns: No Meds Home Medications and Allergies Home Medications Medication Instructions Recorded Confirmed Type levothyroxine 75 mcg PO QAM 01/01/21 02/16/21 History simvastatin 20 mg PO DAILY 01/01/21 02/16/21 History Mucinex
[2021-02-16] MEDS: carvediloL 12.5 MG TABLET PO ×2 (10:56→16:38)
[2021-02-16] MEDS: lisinopriL 20 MG TABLET PO ×2 (10:56→16:38)
[2021-02-16] MEDS: FUROSEMIDE 40 MG TABLET PO ×2 (10:56→16:38)
[2021-02-16] MEDS: DULoxetine HCL 20 MG CAPSULE.DR PO (10:56)
[2021-02-16] MEDS: CYCLOBENZAPRINE HCL 5 MG TABLET PO ×2 (11:33→20:33)
--- NOTE | 2021-02-16 11:40 | PM.IMPN ---
Progress Note: A&P Assessment and Plan (1) Effusion of right knee joint: Code(s): M25.461 - Effusion, right knee Status: Acute Assessment and Plan: Unclear etiology, could joint effusion from trauma, infection or gout -suspect more trauma (on warfarin) and possible infection in addition to that -Gram stain shows white blood cells but no organisms, monitor for growth -continue allopurinol -I have contacted Orthopedics about antibiotic regimen since healing got 1 dose of ceftriaxone in the ER -continue PT and OT (2) TMJ arthralgia: Code(s): M26.629 - Arthralgia of temporomandibular joint, unspecified side Status: Acute Assessment and Plan: Pt is having significant jaw pain similar to her TMJ pain a few years ago -Her pain is consistent with TMJ with ear pain and pain with movement. not improved with norco -ddx such as trigeminal neuralgia seem less likely -Try muscle relaxor, spacing apart from norco -unable to do NSAID/naproxen due to warfarin use and INR 2.9 -may need to see dentist/ENT for this outpt (3) Ambulatory dysfunction: Code(s): R26.2 - Difficulty in walking, not elsewhere classified Status: Acute Assessment and Plan: Continue PT OT -weight-bearing as tolerated (4) Leukocytosis: Qualifiers: Leukocytosis type: unspecified Qualified Code(s): D72.829 - Elevated white blood cell count, unspecified Code(s): D72.829 - Elevated white blood cell count, unspecified Status: Acute Assessment and Plan: Likely due from inflammation from trauma/infection -continue with above (5) Chronic anticoagulation: Code(s): Z79.01 - assisted (current) use of anticoagulants Status: Chronic Assessment and Plan: Secondary to atrial fibrillation -INR supratherapeutic, hold warfarin tonight (6) Chronic anemia: Code(s): D64.9 - Anemia, unspecified Status: Chronic Assessment and Plan: Likely anemia of chronic disease, hemoglobin 11.8 (7) Hypothyroidism: Qualifiers: Hypothyroidism type: unspecified Qualified Code(s): E03.9 - Hypothyroidism, unspecified Code(s): E03.9 - Hypothyroidism, unspecified Status: Chronic Assessment and Plan: Continue levothyroxine (8) Hyperlipidemia: Qualifiers: Hyperlipidemia type: unspecified Qualified Code(s): E78.5 - Hyperlipidemia, unspecified Code(s): E78.5 - Hyperlipidemia, unspecified Status: Chronic Assessment and Plan: Continue simvastatin (9) Gout: Code(s): M10.9 - Gout, unspecified Status: Acute Assessment and Plan: Continue allopurinol (10) Atrial fibrillation: Code(s): I48.91 - Unspecified atrial fibrillation Status: Chronic Assessment and Plan: Patient has pacemaker in place -will start warfarin likely tomorrow (11) Heart failure: Code(s): I50.9 - Heart failure, unspecified Status: Chronic Assessment and Plan: Currently compensated - Monitor fluid status - Continue Lasix therapy and Coreg (12) Hypertension: Code(s): I10 - Essential (primary) hypertension Status: Chronic Assessment and Plan: Last blood pressure 166/66 -continue lisinopril, Lasix and Coreg -Monitor blood pressure. Time Spent With Patient Time with patient: 25 - 35 minutes Subjective Date/time seen: 02/16/21 11:40 Interval history: Pt is a 85-year-old female here for jaw and knee pain. Patient was seen today and states her jaw is actually hurting her worse than hernia at this time. She says she has had this pain in the past and was diagnosed with TMJ. She describes the pain at 10/10 chronic aching pain that starts at her ear goes down her jaw and is worse with any movement. Nothing seems to make it better. She does have some ear discomfort as well. She said this pain started on
[2021-02-16] MEDS: allopurinoL 100 MG TABLET PO (20:33)
[2021-02-17] MEDS: LEVOTHYROXINE SODIUM 75 MCG TABLET PO (05:55)
[2021-02-17 06:00] VITALS: BP 157/68; PULSE 70; RESP 18; TEMP 36.3; O2SAT 96
[2021-02-17 06:17] LABS: Basophils Absolute Auto 0.1 K/mm3 (0.0-0.1); Basophils Percent Auto 0.4 % (0.2-1.2); Eosinophils Percent Auto 0.2 % (0-4.4); Hematocrit 37.1 % (37.0-47.0); Hemoglobin 12.1 g/dL (12.0-15.0); Immature Granulocyte Absolute 0.06 K/mm3 (0.00-0.031); Immature Granulocyte Percent A 0.5 % (0-0.5); Lymphocytes Absolute Auto 1.56 K/mm3 (0.9-3.2); Lymphocytes Percent Auto 12.3 % (18.3-44.2); Mean Corpuscular HGB Conc 32.6 g/dl (32-36); Mean Corpuscular Hemoglobin 31.7 pg (26-34); Mean Corpuscular Volume 97.1 fl (80-100); Mean Platelet Volume 11.7 fl (7.4-10.4); Monocytes Absolute Auto 1.3 K/mm3 (0.1-0.6); Monocytes Percent Auto 9.9 % (2.6-8.5); Neutrophils Absolute Auto 9.8 K/mm3 (1.3-6.7); Neutrophils Percent Auto 76.7 % (45.5-73.1); Platelet Count Result 225 k/mm3 (150-375); Red Blood Count 3.82 M/mm3 (4.2-5.4); Red Cell Distribution Width 14.2 % (11.5-14.5); White Blood Count 12.7 K/mm3 (4.5-10.0)
[2021-02-17 06:30] LABS: Blood Urea Nitrogen 24 mg/dL (7-17); Calcium 10.4 mg/dL (8.4-10.2); Carbon Dioxide > 40 mmol/L (22-30); Chloride 98 mmol/L (98-107); Estimated CRCL calculation 35 ml/min; Estimated Glomerular Filt Rate 59; Glucose 123 mg/dL (65-105); Potassium 3.3 mmol/L (3.4-5.0); Sodium 142 mmol/L (137-145)
[2021-02-17 06:39] LABS: CRP 26.5 mg/dL (<1.0)
[2021-02-17 06:50] LABS: Erythrocyte Sedimentation Rate 105 mm/hr (0-20)
[2021-02-17 08:15] LABS: INR 3.5; Prothrombin Time 35.2 Seconds (11.1-14.7)
[2021-02-17] MEDS: CYCLOBENZAPRINE HCL 5 MG TABLET PO (08:27)
[2021-02-17] MEDS: DULoxetine HCL 20 MG CAPSULE.DR PO (08:27)
[2021-02-17] MEDS: FUROSEMIDE 40 MG TABLET PO ×2 (08:27→16:52)
[2021-02-17] MEDS: allopurinoL 100 MG TABLET PO ×2 (08:27→20:58)
[2021-02-17] MEDS: POTASSIUM CHLORIDE 20 MEQ TABLET 40 MEQ PO ×2 (08:27→15:33)
[2021-02-17] MEDS: SIMVASTATIN 20 MG TABLET PO (08:27)
[2021-02-17] MEDS: lisinopriL 20 MG TABLET PO ×2 (08:27→16:52)
--- NOTE | 2021-02-17 08:41 | PM.PNORT ---
Progress Note: A&P Assessment and Plan (1) Gout of right knee: Code(s): M10.9 - Gout, unspecified Status: Acute Assessment and Plan: patient states right knee improved today. She has better active range of motion. She was able to get up yesterday with therapy. Knee aspirate showing gout crystals. Patient currently on allopurinol. Continue conservative care for knee. May be discharged when medically cleared. Subjective Subjective Date/Time Seen: 02/17/21 08:41 patient awake and alert. States right knee pain slightly improved. More concerned about left-sided facial and jaw pain. Exam Const: General: healthy appearing; No in distress or confusion Orientation/consciousness: oriented to person, oriented to place, oriented to time and No confusion HENMT: Head: normal to inspection, normocephalic and atraumatic Eyes: Conjunctivae: conjunctivae normal Sclera: sclerae normal Neck: Neck: supple and nontender Resp: Effort & Inspection: normal respiratory effort and no audible wheezes Cardio: Rate: regular rate Rhythm: regular rhythm Skin: General skin exam: no rashes or lesions noted Neuro: General: oriented to person, oriented to place, oriented to time and No confusion Extrem: Right upper extremity: normal to inspection Left upper extremity: normal to inspection Right lower extremity: hip/thigh Details: normal ROM; no tenderness, knee Details: tenderness (anterior and medial joint line ) Location: of the medial joint line (moderate ) and of the pre-patellar area (moderate ), swelling (peripatellar and medial joint, moderate effusion), abnormal ROM (active range of motion -10 degrees extension, 110 degrees flexion) Details: pain with active ROM during Details: in extension and in flexion, knee ligament exam normal Details: anterior drawer test normal, posterior drawer test normal, valgus stress test normal and Audrey?s test normal, knee ligament exam abnormal Details: varus stress test normal (painful medial ) and Nolberto's Test Details: positive medially and foot Details: normal capillary refill, toes with normal ROM, vascular exam Details: dorsalis pedis pulse present and motor-sensory exam Details: light-touch normal; no tenderness; no edema Left lower extremity: normal to inspection, normal capillary refill and knee Details: normal ROM (Active extension 5, flexion 130) and knee ligament exam normal; no tenderness Psych: Affect: normal affect Objective Data Vital Signs Vital Signs: Vital Signs - 24 hr 02/16/21 12:59 02/16/21 14:00 02/16/21 21:50 Temperature 97.9 F 97.5 F L Pulse Rate 70 76 Respiratory Rate 16 18 Blood Pressure 148/57 H 160/70 H Pulse Oximetry 97 95 94 02/17/21 06:00 Temperature 97.3 F L Pulse Rate 70 Respiratory Rate 18 Blood Pressure 157/68 H Pulse Oximetry 96 Intake/Output Intake/Output: Intake & Output 02/14/21 02/15/21 02/16/21 02/17/21 23:59 23:59 23:59 23:59 Intake Total 1150 350 Output Total 500 1000 Balance 650 -650 Meds/Results Medications: Active Medications Generic Name Dose Route Start Last Admin Trade Name Freq PRN Reason Stop Dose Admin Hydrocodone Bitart/Acetaminophen 1 tab 02/16/21 03:14 02/16/21 07:36 Hydrocodone/Acetaminophen (*Crx) 5-325 Mg Tablet PO 1 tab Q4H PRN Administration Pain Rated 4-6 Allopurinol 100 mg 02/16/21 21:00 02/17/21 08:27 Allopurinol 100 Mg Tablet PO 100 mg Q12HR GAVI Administration Carvedilol 12.5 mg 02/16/21 09:05 02/16/21 16:38 Carvedilol 12.5 Mg Tablet PO 12.5 mg BID GAVI Administration Cyclobenzaprine HCl 5 mg 02/16/21 11:24 02/17/21 08:27 Cyclobenzaprine Hcl 5 Mg Tablet PO 5 mg Q8H PRN Administration jaw pain Duloxetine HCl 20 mg 02/16/21 09:05 02/17/21 08:27 Duloxetine Hcl 20 Mg Capsule.Dr PO 20 mg DAILY GAVI Administration Furosemide 40 mg 02/16/21 09:05 02/17/21 08:27 Furosemide 40 Mg Tablet PO 40 mg BID GAVI Adm
[2021-02-17 09:06] LABS: Vitamin D 25 Hydroxy 38.5 ng/mL
[2021-02-17 13:07] LABS: Alveolar/Arterial O2 Gradient 25.5 mmHg; Carboxyhemoglobin 0.1 % THb (0-2.0); Device ROOM AIR; Fractional Inspired Oxygen 21 %; HCO3 ABG 35.7 mEq/l (22.0-26.0); Methemoglobin ABG 0.2 %THb (0-1.5); Oxygen Content ABG 16.6 %vol (16.0-22.0); Oxygen Saturation ABG 94.7 % (95.0-100.0); Oxyhemoglobin 92.9 % THb (90.0-100.0); PCO2 ABG 47.2 mmHg (35.0-45.0); PO2 ABG 67.7 mmHg (80.0-100.0); PO2 FiO2 Ratio Arterial Blood 3.22 %; Reduced Hemoglobin 6.8 %THb (0-5.0); Site Drawn LEFT BRACHIAL; Total Hemoglobin 12.7 g/dL (12.0-18.0); pH ABG 7.496 (7.350-7.450)
[2021-02-17 13:11] LABS: Basophils Absolute Auto 0.1 K/mm3 (0.0-0.1); Basophils Percent Auto 0.4 % (0.2-1.2); Eosinophils Absolute Auto 0.1 K/mm3 (0-0.3); Eosinophils Percent Auto 0.4 % (0-4.4); Hematocrit 37.3 % (37.0-47.0); Hemoglobin 12.3 g/dL (12.0-15.0); Immature Granulocyte Absolute 0.07 K/mm3 (0.00-0.031); Immature Granulocyte Percent A 0.5 % (0-0.5); Lymphocytes Absolute Auto 1.65 K/mm3 (0.9-3.2); Lymphocytes Percent Auto 11.4 % (18.3-44.2); Mean Corpuscular Hemoglobin 31.9 pg (26-34); Mean Corpuscular Volume 96.6 fl (80-100); Mean Platelet Volume 11.6 fl (7.4-10.4); Monocytes Absolute Auto 1.3 K/mm3 (0.1-0.6); Neutrophils Absolute Auto 11.4 K/mm3 (1.3-6.7); Neutrophils Percent Auto 78.3 % (45.5-73.1); Platelet Count Result 232 k/mm3 (150-375); Red Blood Count 3.86 M/mm3 (4.2-5.4); Red Cell Distribution Width 14.2 % (11.5-14.5); White Blood Count 14.5 K/mm3 (4.5-10.0)
[2021-02-17 13:21] LABS: INR 3.5; Prothrombin Time 35.7 Seconds (11.1-14.7)
[2021-02-17 13:27] LABS: Ammonia < 9 umol/L (9-30)
[2021-02-17 13:33] LABS: Alanine Aminotransferase 16 U/L (4-35); Albumin Level 3.8 g/dL (3.5-5.1); Alkaline Phosphatase 96 U/L (38-126); Anion Gap 6 mmol/L (8-16); Aspartate Amino Transferase 37 U/L (14-36); Bilirubin,Total 0.9 mg/dL (0.2-1.3); Blood Urea Nitrogen 24 mg/dL (7-17); Calcium 10.1 mg/dL (8.4-10.2); Carbon Dioxide 39 mmol/L (22-30); Chloride 97 mmol/L (98-107); Estimated CRCL calculation 35 ml/min; Estimated Glomerular Filt Rate 59; Glucose 105 mg/dL (65-105); Potassium 2.4 mmol/L (3.4-5.0); Sodium 142 mmol/L (137-145)
--- NOTE | 2021-02-17 13:56 | PM.IMPN ---
Progress Note: A&P Assessment and Plan (1) Acute metabolic encephalopathy: Code(s): G93.41 - Metabolic encephalopathy Status: Acute Assessment and Plan: Patient was confused on my encounter as stated above -head CT, physical neuro exam and ammonia level normal -white blood cell count elevated, possible underlying infection? -will obtain chest x-ray, UA and blood cultures. No fevers or hypotension at this time -ABG reviewed which showed acute on chronic hypercapnia with an elevated CO2 of 47.2 but an elevated bicarb at 35.7 but pH slightly elevated 7.496 -confusion could be due to low-dose Flexeril, will hold this at this time. (2) Effusion of right knee joint: Code(s): M25.461 - Effusion, right knee Status: Acute Assessment and Plan: Unclear etiology, suspect effusion from trauma and gout. Infection seems less likely but monitor cultures -suspect more trauma (on warfarin) and possible infection in addition to that -Gram stain shows white blood cells but no organisms, monitor for growth -continue allopurinol -continue PT and OT (3) TMJ arthralgia: Code(s): M26.629 - Arthralgia of temporomandibular joint, unspecified side Status: Acute Assessment and Plan: Pt was having significant jaw pain similar to her TMJ pain a few years ago -her pain has improved according to the patient and nursing staff but now she is confused. Will hold this at this time -Her pain is consistent with TMJ with ear pain and pain with movement. not improved with norco -ddx such as trigeminal neuralgia seem less likely -unable to do NSAID/naproxen due to warfarin use and INR 3.5 -may need to see dentist/ENT for this outpt (4) Ambulatory dysfunction: Code(s): R26.2 - Difficulty in walking, not elsewhere classified Status: Acute Assessment and Plan: Continue PT OT -weight-bearing as tolerated (5) Leukocytosis: Qualifiers: Leukocytosis type: unspecified Qualified Code(s): D72.829 - Elevated white blood cell count, unspecified Code(s): D72.829 - Elevated white blood cell count, unspecified Status: Acute Assessment and Plan: As above -rule out infection (6) Chronic anticoagulation: Code(s): Z79.01 - oil heaterman (current) use of anticoagulants Status: Chronic Assessment and Plan: Secondary to atrial fibrillation -INR supratherapeutic, hold warfarin tonight (7) Chronic anemia: Code(s): D64.9 - Anemia, unspecified Status: Chronic Assessment and Plan: Likely anemia of chronic disease, hemoglobin 12.3 (8) Hypothyroidism: Qualifiers: Hypothyroidism type: unspecified Qualified Code(s): E03.9 - Hypothyroidism, unspecified Code(s): E03.9 - Hypothyroidism, unspecified Status: Chronic Assessment and Plan: Continue levothyroxine -TSH WNL (9) Hyperlipidemia: Qualifiers: Hyperlipidemia type: unspecified Qualified Code(s): E78.5 - Hyperlipidemia, unspecified Code(s): E78.5 - Hyperlipidemia, unspecified Status: Chronic Assessment and Plan: Continue simvastatin (10) Gout: Code(s): M10.9 - Gout, unspecified Status: Acute Assessment and Plan: Continue allopurinol (11) Atrial fibrillation: Code(s): I48.91 - Unspecified atrial fibrillation Status: Chronic Assessment and Plan: Patient has pacemaker in place -hold warfarin due to INR 3.5 (12) Heart failure: Code(s): I50.9 - Heart failure, unspecified Status: Chronic Assessment and Plan: Currently compensated - Monitor fluid status - Continue Lasix therapy and Coreg (13) Hypertension: Code(s): I10 - Essential (primary) hypertension Status: Chronic Assessment and Plan: Last blood pressure 157/68 -continue lisinopril, Lasix and Coreg -Monitor blood pressur
[2021-02-17 14:00] VITALS: BP 168/58; PULSE 71; RESP 18; TEMP 36.8; O2SAT 98
[2021-02-17 14:29] LABS: Magnesium 1.9 mg/dL (1.6-2.3)
[2021-02-17] MEDS: carvediloL 12.5 MG TABLET PO (15:33)
[2021-02-17 19:24] LABS: Add Urine Microscopic? YES; Appearance Urine Clear (Clear); Bacteria Urine Trace /hpf; Bilirubin Urine Negative (Negative); Blood Urine Negative (Negative); Color Urine Yellow (Yellow); Glucose Urine UA Negative (Negative); Ketones Urine Negative (Negative); Leukocyte Esterase Ur Trace LEU/UL (Negative); Mucus Urine Rare /lpf; Nitrate Urine Negative (Negative); Protein Urine 1+ mg/dL (Negative); RBC Urine 0-2 /hpf (0-2); Specific Grav Ur 1.012 (1.001-1.035); Squamous Epithelial Cell Urine Few /hpf (Few)
[2021-02-17 21:00] VITALS: PULSE 69; RESP 18; O2SAT 100
[2021-02-17] MEDS: HYDROcodone/acetaminophen (*CRX) 5-325 MG TABLET 1 TAB PO (21:00)
[2021-02-17 22:00] VITALS: BP 155/56; PULSE 69; RESP 18; TEMP 36.3; O2SAT 100
[2021-02-18] MEDS: LEVOTHYROXINE SODIUM 75 MCG TABLET PO (05:59)
[2021-02-18 06:00] VITALS: BP 151/68; PULSE 77; RESP 18; TEMP 36.1; O2SAT 94
[2021-02-18 06:27] LABS: Basophils Absolute Auto 0.1 K/mm3 (0.0-0.1); Basophils Percent Auto 0.5 % (0.2-1.2); Eosinophils Absolute Auto 0.2 K/mm3 (0-0.3); Eosinophils Percent Auto 1.5 % (0-4.4); Hematocrit 36.3 % (37.0-47.0); Hemoglobin 11.7 g/dL (12.0-15.0); Immature Granulocyte Absolute 0.04 K/mm3 (0.00-0.031); Immature Granulocyte Percent A 0.4 % (0-0.5); Lymphocytes Absolute Auto 2.08 K/mm3 (0.9-3.2); Lymphocytes Percent Auto 18.7 % (18.3-44.2); Mean Corpuscular HGB Conc 32.2 g/dl (32-36); Mean Corpuscular Hemoglobin 30.9 pg (26-34); Mean Corpuscular Volume 95.8 fl (80-100); Mean Platelet Volume 12.3 fl (7.4-10.4); Monocytes Absolute Auto 1.1 K/mm3 (0.1-0.6); Monocytes Percent Auto 9.7 % (2.6-8.5); Neutrophils Absolute Auto 7.7 K/mm3 (1.3-6.7); Neutrophils Percent Auto 69.2 % (45.5-73.1); Platelet Count Result 244 k/mm3 (150-375); Red Blood Count 3.79 M/mm3 (4.2-5.4); White Blood Count 11.2 K/mm3 (4.5-10.0)
[2021-02-18 06:45] LABS: Anion Gap 7 mmol/L (8-16); Blood Urea Nitrogen 28 mg/dL (7-17); Carbon Dioxide 35 mmol/L (22-30); Chloride 101 mmol/L (98-107); Estimated CRCL calculation 32 ml/min; Estimated Glomerular Filt Rate 53; Glucose 94 mg/dL (65-105); Potassium 2.8 mmol/L (3.4-5.0); Sodium 143 mmol/L (137-145)
--- NOTE | 2021-02-18 09:16 | PM.PNORT ---
Progress Note: A&P Assessment and Plan (1) Gout of right knee: Qualifiers: Encounter type: subsequent encounter Chronicity: acute Code(s): M10.9 - Gout, unspecified Status: Acute Assessment and Plan: Patient reports no right knee pain today. Improvement in ROM noted. Mild knee joint effusion. Working well with PT. WBAT. Continue allopurinol. Conservative treatment. Okay for discharge when medically stable. Subjective Subjective Date/Time Seen: 02/18/21 09:16 No new complaints. Pain in knee resolved. Still with some pain of the left jaw. Hopeful to be discharged today. Review of Systems Constitutional: Constitutional: Reports no additional constitutional complaints, Denies chills, Denies fever(s), Denies headache(s) and Reports weakness Eyes: Eyes: Reports no additional eye complaints and Denies change in vision ENT: Denies headache(s) and Denies sore throat Cardiovascular: Cardiovascular: Denies chest pain and Denies dyspnea Respiratory: Respiratory: Denies cough and Denies dyspnea Gastrointestinal: Gastrointestinal: Denies abdominal pain, Denies diarrhea and Denies vomiting Genitourinary: Genitourinary: Denies urinary frequency and Denies dysuria Musculoskeletal: Musculoskeletal: Denies deformity, Reports arthralgias, Reports joint swelling and Denies numbness Integumentary/Breasts: Skin/Breast: Denies rash and Denies wounds Neurologic: Denies headache(s), Denies focal weakness and Denies numbness Psychiatric: Psychiatric: Reports no additional psychiatric complaints Endocrine: Endocrine: Reports no additional endocrine complaints Hematologic/Lymphatic: Hematologic/Lymphatic: Reports no additional hematologic/lymphatic complaints Allergic/Immunologic: Allergic/Immunologic: Reports no additional allergic/immunologic complaints Exam Const: General: healthy appearing; No in distress or confusion Orientation/consciousness: oriented to person, oriented to place, oriented to time and No confusion HENMT: Head: normal to inspection, normocephalic and atraumatic Eyes: Conjunctivae: conjunctivae normal Sclera: sclerae normal Neck: Neck: supple and nontender Resp: Effort & Inspection: normal respiratory effort and no audible wheezes Cardio: Rate: regular rate Rhythm: regular rhythm Skin: General skin exam: no rashes or lesions noted Neuro: General: oriented to person, oriented to place, oriented to time and No confusion Extrem: Right upper extremity: normal to inspection Left upper extremity: normal to inspection Right lower extremity: hip/thigh Details: normal ROM; no tenderness, knee Details: tenderness (anterior and medial joint line- IMPROVED ) Location: of the medial joint line (moderate ) and of the pre-patellar area (moderate ), swelling (mild joint effusion), abnormal ROM (active range of motion -5 degrees extension, 110 degrees flexion ) Details: pain with active ROM during Details: in extension and in flexion, knee ligament exam normal (IMPROVED ) Details: anterior drawer test normal, posterior drawer test normal, valgus stress test normal and Audrey?s test normal, knee ligament exam abnormal Details: varus stress test normal (painful medial- IMPROVED ), Nolberto's Test Details: positive medially and ecchymosis and foot Details: normal capillary refill, toes with normal ROM, vascular exam Details: dorsalis pedis pulse present and motor-sensory exam Details: light-touch normal; no tenderness; no edema Left lower extremity: normal to inspection, normal capillary refill and knee Details: normal ROM (Active extension 5, flexion 130) and knee ligament exam normal; no tenderness Psych: Affect: normal affect Objective Data Vital Signs Vital Signs: Vital Signs - 24 hr 02/17/21 14:00 02/17/21 21:00 02/17/21 22:00 Temperature 36.8 C 36.3 C L Pulse Rate 71 69 69 Respiratory Rate 18 18 18 Blood Pressure 168/58 H 155/56 H Pulse Oximetry 98 100 100 02/18/21 06
[2021-02-18] MEDS: POTASSIUM CHLORIDE 20 MEQ TABLET 40 MEQ PO ×2 (09:28→13:50)
[2021-02-18 09:30] VITALS: PULSE 76
[2021-02-18] MEDS: lisinopriL 20 MG TABLET PO (09:30)
[2021-02-18] MEDS: SIMVASTATIN 20 MG TABLET PO (09:30)
[2021-02-18] MEDS: allopurinoL 100 MG TABLET PO (09:30)
[2021-02-18] MEDS: carvediloL 12.5 MG TABLET PO (09:30)
[2021-02-18] MEDS: DULoxetine HCL 20 MG CAPSULE.DR PO (09:31)
[2021-02-18] MEDS: HYDROcodone/acetaminophen (*CRX) 5-325 MG TABLET 1 TAB PO (09:35)
[2021-02-18 13:26] LABS: Potassium 3.2 mmol/L (3.4-5.0)
[2021-02-18 13:30] LABS: INR 2.9; Prothrombin Time 30.7 Seconds (11.1-14.7)
--- NOTE | 2021-02-18 13:55 | PM.DS ---
DS: Admitting Diagnosis Admitting Diagnosis Admitting Diagnosis: knee pain/swelling DS: Discharge Diagnosis Discharge Diagnosis (1) Acute metabolic encephalopathy: Code(s): G93.41 - Metabolic encephalopathy Status: Acute Assessment and Plan: Resolved, likely due to muscle relaxer. Would recommend not restarting the medication in the future. -head CT, physical neuro exam and ammonia level normal -UA and chest x-ray reviewed, no infection suspected. Blood cultures are pending and will be monitored until finalized. -ABG reviewed which showed acute on chronic hypercapnia with an elevated CO2 of 47.2 but an elevated bicarb at 35.7 but pH slightly elevated 7.496 (2) Effusion of right knee joint: Code(s): M25.461 - Effusion, right knee Status: Acute Assessment and Plan: Likely due to trauma and gout Infection seems less likely -patient is doing much better today and able to put weight on it. She says the pain is minimal -Gram stain shows white blood cells but no organisms, monitor for growth -continue allopurinol -continue PT and OT at SNF (3) TMJ arthralgia: Code(s): M26.629 - Arthralgia of temporomandibular joint, unspecified side Status: Acute Assessment and Plan: Patient was having significant jaw pain similar to her TMJ pain a few years ago -her pain has improved according to the patient and nursing staff but the Flexeril made her confused -day of discharge she said it was sore but the pain was minimal -unable to do NSAID/naproxen due to warfarin -Will need to see dentist/ENT for this outpt (4) Ambulatory dysfunction: Code(s): R26.2 - Difficulty in walking, not elsewhere classified Status: Acute Assessment and Plan: Continue PT OT -weight-bearing as tolerated and d/c to SNF (5) Leukocytosis: Qualifiers: Leukocytosis type: unspecified Qualified Code(s): D72.829 - Elevated white blood cell count, unspecified Code(s): D72.829 - Elevated white blood cell count, unspecified Status: Acute Assessment and Plan: As above -improving, no infx suspected (6) Chronic anticoagulation: Code(s): Z79.01 - long-term (current) use of anticoagulants Status: Chronic Assessment and Plan: Secondary to atrial fibrillation -INR 2.9 today. Restart tomorrow evening and recheck INR outpt. [place] to adjust warfarin according to INR levels. (7) Chronic anemia: Code(s): D64.9 - Anemia, unspecified Status: Chronic Assessment and Plan: Likely anemia of chronic disease, hemoglobin 11.7 (8) Hypothyroidism: Qualifiers: Hypothyroidism type: unspecified Qualified Code(s): E03.9 - Hypothyroidism, unspecified Code(s): E03.9 - Hypothyroidism, unspecified Status: Chronic Assessment and Plan: Continue levothyroxine -TSH WNL (9) Hyperlipidemia: Qualifiers: Hyperlipidemia type: unspecified Qualified Code(s): E78.5 - Hyperlipidemia, unspecified Code(s): E78.5 - Hyperlipidemia, unspecified Status: Chronic Assessment and Plan: Continue simvastatin (10) Gout: Code(s): M10.9 - Gout, unspecified Status: Acute Assessment and Plan: Continue allopurinol (11) Atrial fibrillation: Code(s): I48.91 - Unspecified atrial fibrillation Status: Chronic Assessment and Plan: Patient has pacemaker in place -restart warfarin as stated above (12) Heart failure: Code(s): I50.9 - Heart failure, unspecified Status: Chronic Assessment and Plan: Currently compensated - Continue Lasix therapy and Coreg -add daily potassium, recheck BMP on monday outpt (13) Hypertension: Code(s): I10 - Essential (primary) hypertension Status: Chronic Assessment and Plan: Last blood pressure 151/68 -continue quinapril, Lasix and Coreg
[2021-02-18 14:00] VITALS: BP 123/59; PULSE 67; RESP 20; TEMP 36.4; O2SAT 100
--- NOTE | 2021-02-23 15:30 | PC.NURSE ---
Blood and wound cx are negative.
== END 2021-02-18 17:15 ==
LOC: ANHED 02-16 03:14 → ANH3MEDSUR 02-16 04:44
PROVIDERS: Emergency Medicine; Physician Assistant; Admitting Provider Family Medicine; Emergency Provider Emergency Medicine; PCP Internal Medicine; Visit Provider Internal Medicine
DX: G93.41 Metabolic encephalopathy (principal); M25.461 Effusion, right knee; M10.9 Gout, unspecified; R06.89 Other abnormalities of breathing; M26.629 Arthralgia of temporomandibular joint, unspecified side; M25.561 Pain in right knee; R26.2 Difficulty in walking, not elsewhere classified; M17.11 Unilateral primary osteoarthritis, right knee; D72.829 Elevated white blood cell count, unspecified; D64.9 Anemia, unspecified; E03.9 Hypothyroidism, unspecified; E78.5 Hyperlipidemia, unspecified; I48.91 Unspecified atrial fibrillation; I11.0 Hypertensive heart disease with heart failure; I50.9 Heart failure, unspecified; Z91.81 History of falling; Z95.0 Presence of cardiac pacemaker; Z79.891 Long term (current) use of opiate analgesic; Z79.01 Long term (current) use of anticoagulants; Z79.82 Long term (current) use of aspirin
CPT/HCPCS: 20610; 36415; 36600; 70450; 71046; 73564; 80048; 80076; 81001; 82140; 82306; 82375; 82805; 82945; 83050; 83735; 84132; 84157; 84443; 84550; 85025; 85610; 85652; 86140; 87040; 87070; 87075; 87205; 89051; 89060; 96365; 97110; 97116; 97161; 97165; 97535; 99285; A9270; G0378; J0696

== ENCOUNTER → 2023-04-03 14:10 | Outpatient (CLI) | payer MEDICARE, SELFPAY ==
--- NOTE | ~2023-04-03 | CT_ITS ---
EXAMINATION: CT lumbar spine wo con DATE: 04/03/2023 14:31 INDICATION: Lumbar radiculopathy. TECHNIQUE: Computed tomography (CT) of the lumbar spine was performed without intravenous contrast. A utomated exposure control and iterative reconstruction technique were employed. The dose-length produ ct was 686.56 mGy-cm. COMPARISON: CT lumbar spine 12/18/2020 FINDINGS: There is 12 degrees levoscoliosis of lumbar spine. There is 6 mm anterolisthesis of L4 on L 5 and 5 mm anterolisthesis of L5 on S1. Vertebral body heights are normal. There is severely decrease d disc height from L1-L2 through L5-S1 with endplate remodeling. The following disc levels are specif ically discussed: L1-L2: The disc is bulging. There is severe bilateral facet joint osteoarthritis. There is moderate r ight and mild left neural foraminal stenosis. There is mild central canal stenosis. L2-L3: The disc is bulging. There is severe bilateral facet joint osteoarthritis. There is moderate b ilateral neural foraminal stenosis. There is mild central canal stenosis. L3-L4: The disc is bulging. There is severe bilateral facet joint osteoarthritis. There is moderate b ilateral neural foraminal stenosis. There is mild central canal stenosis. L4-L5: The disc is bulging. There is severe bilateral facet joint osteoarthritis. There is moderate b ilateral neural foraminal stenosis. There is moderate central canal stenosis. L5-S1: The disc is bulging. There is severe bilateral facet joint osteoarthritis. There is moderate b ilateral neural foraminal stenosis. There is mild central canal stenosis. IMPRESSION: 1. Severe lumbar spondylosis, stable from 12/18/2020. Reviewed, dictated and finalized at location A.
== END ==
PROVIDERS: PCP Family Medicine; Visit Provider Nurse Practitioner Family
DX: M47.26 Other spondylosis with radiculopathy, lumbar region (principal)
CPT/HCPCS: 72131

== ENCOUNTER 2024-01-12 11:28 | Outpatient (CLI) | payer MEDICARE, SELFPAY ==
--- NOTE | ~2024-01-12 | MMUS_ITS ---
EXAMINATION: MM diagnostic pete BI w margi, US breast BI complete HISTORY: Left breast mass TECHNIQUE: Additional 3-D tomosynthesis images of the breasts were performed and synthetic 2-D images were generated. CAD analysis was submitted and interpreted. High resolution bilateral complete breas t ultrasound was performed. COMPARISON: Comparison to multiple prior studies sequentially, with oldest reviewed study dated 03/09. BREAST PARENCHYMAL COMPOSITION: Dense: The breasts are heterogeneously dense, which may obscure small masses FINDINGS: MAMMOGRAPHIC FINDINGS: There is a spiculated mass centered in the upper outer quadrant of the right breast with associated p leomorphic branching calcification. There are extensive extensive indeterminate calcifications in the lower outer and lower inner quadrant of left breast, suspicious. There are masses in the lower outer and lower inner quadrant of the left breast, largest medially. ULTRASOUND: Complete bilateral US of all 4 quadrants of the breasts and retroareolar region was reviewed. Right breast: At 12:00, 4 cm from the nipple there is an irregular shaped hypoechoic mass with assistant infant toddler teacher ior shadowing and no internal vascularity measuring approximately 1.3 cm. At 8:00, 7 cm from the nipp le there is an oval hypoechoic 6 mm mass with circumscribed margins, parallel orientation, no signifi cant posterior features, likely benign. At 9:00, 5 cm from the nipple there is a complicated cyst kathe suring 3 mm. At 11:00, 3 cm from the nipple there is a large heterogeneous mass with mixed posterior attenuation measuring 1.5 x 1.5 x 1.4 cm corresponding to the mass seen on mammography. There are int ernal echogenic foci, consistent with calcifications. No significant internal vascularity. Left breast: At 2:00, 5 cm from the nipple, there is an 8 mm intramammary lymph node. At 3:00, 4 cm f rom the nipple, there is a small cyst. At 4:00, 6 cm from the nipple there is an irregular shaped hyp oechoic mass measuring 6 x 6 x 5 mm with antiparallel configuration. At 6:00, 5 cm from the nipple th ere is an irregular shaped heterogeneous hypoechoic mass measuring 3 x 2.1 x 1.8 cm without internal vascularity. At 6:00 near the nipple is an irregular shaped hypoechoic 6 mm mass, suspicious. IMPRESSION: 1. Multiple suspicious bilateral masses and calcifications. 2. Recommend ultrasound-guided biopsy of dominant bilateral breast masses. BI-RADS category 5, highly suggestive of malignancy. Reviewed, dictated and finalized at location A. F TOXICOLOGIST IMPRESSION: 1. Multiple suspicious bilateral masses and calcifications. 2. Recommend ultrasound-guided biopsy of dominant bilateral breast masses. BI-RADS category 5, highly suggestive of malignancy.
== END 2024-01-12 11:29 | disposition home or self-care (01) ==
LOC: ANHIMG 11:30
PROVIDERS: PCP Nurse Practitioner Adult Health; Visit Provider Nurse Practitioner Adult Health
DX: R92.8 Other abnormal and inconclusive findings on diagnostic imaging of breast (principal)
CPT/HCPCS: 76641; 77062; 77066; G0279

== ENCOUNTER 2024-01-30 01:20 | Day surgery (SDC) | payer MEDICARE, SELFPAY ==
[2024-01-29 13:43] VITALS: BMI 28.2
[2024-01-30 08:58] LABS: Basophils Absolute Auto 0.1 K/mm3 (0.0-0.1); Basophils Percent Auto 0.6 % (0.2-1.2); Eosinophils Absolute Auto 0.3 K/mm3 (0-0.3); Eosinophils Percent Auto 2.8 % (0-4.4); Hematocrit 39.3 % (37.0-47.0); Hemoglobin 12.4 g/dL (12.0-15.0); Immature Granulocyte Absolute 0.03 K/mm3 (0.00-0.031); Immature Granulocyte Percent A 0.3 % (0-0.5); Lymphocytes Absolute Auto 1.52 K/mm3 (0.9-3.2); Lymphocytes Percent Auto 15.8 % (18.3-44.2); Mean Corpuscular HGB Conc 31.6 g/dl (32-36); Mean Corpuscular Hemoglobin 33.1 pg (26-34); Mean Corpuscular Volume 104.8 fl (80-100); Mean Platelet Volume 11.8 fl (7.4-10.4); Monocytes Absolute Auto 0.9 K/mm3 (0.1-0.6); Monocytes Percent Auto 9.1 % (2.6-8.5); Neutrophils Absolute Auto 6.9 K/mm3 (1.3-6.7); Neutrophils Percent Auto 71.4 % (45.5-73.1); Platelet Count Result 147 k/mm3 (150-375); Red Blood Count 3.75 M/mm3 (4.2-5.4); Red Cell Distribution Width 15.2 % (11.5-14.5); White Blood Count 9.6 K/mm3 (4.5-10.0)
[2024-01-30 09:03] VITALS: BP 136/58; PULSE 80; RESP 14; TEMP 36.4; O2SAT 100; BMI 28.6
[2024-01-30 09:10] LABS: Anion Gap 4 mmol/L (8-16); Blood Urea Nitrogen 22 mg/dL (7-17); Calcium 10.4 mg/dL (8.4-10.2); Carbon Dioxide 33 mmol/L (22-30); Chloride 104 mmol/L (98-107); Estimated CRCL calculation 27 ml/min; Estimated Glomerular Filt Rate 42; Glucose 132 mg/dL (65-110); Potassium 3.8 mmol/L (3.4-5.0); Sodium 141 mmol/L (137-145)
--- NOTE | 2024-01-30 10:26 | WPDHPUPDATE1 ---
History and Physical Update Update Date/Time: 01/30/24 10:26 Marisol Meza is an 88 y.o. female with a history of chronic CHF, primarily diastolic at this point. 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 She has persistent AFib on chronic anticoagulation with Xarelto and she has a biventricular ICD. The ICD has reached PHIL and she is here for a generator change. 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 She is feeling well today, has held her Xarelto with last dose on Monday. In addition, she will and be needing bilateral breast biopsies in the near future. History and Physical has been reviewed, including an updated exam of the patient. There are NO changes in the patient's condition. Risks, benefits, and alternatives have been discussed and questions answered. Reviewed risks of pacemaker implant with patient. These include breathing problems, allergic reactions, bleeding, infection, need for unanticipated surgery such as lead revision, among others. Patient agrees to proceed with procedure.
--- NOTE | 2024-01-30 10:34 | WPDMODSED ---
Moderate Sedation Note-Pt Data Patient Data Diagnosis: BiV ICD at elective replacement interval Present Complaint: Marisol Meza is an 88 y.o. female with a history of chronic CHF, primarily diastolic at this point.? 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 She has persistent AFib on chronic anticoagulation with Xarelto and she has a biventricular ICD.? The ICD has reached PHIL and she is here for a generator change.? 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 The leads are functioning appropriately. First pacemaker was implanted in 2001, gen change 2010, upgraded to a BiV pacemaker 2013. [employer] device. She is feeling well today, has held her Xarelto with last dose on Monday.? In addition, she will and be needing bilateral breast biopsies in the near future. Procedure to be performed/Plan: Conscious sedation Generator change Allergies Allergy/AdvReac Type Severity Reaction Status Date / Time No Known Allergies Allergy Verified 01/30/24 08:48 Home Medications Medication Instructions Recorded Confirmed Type levothyroxine 75 mcg tablet 75 mcg PO QAM 01/01/21 01/30/24 History simvastatin 20 mg tablet 20 mg PO DAILY 01/01/21 01/30/24 History Vitamin D3 125 mcg PO DAILY 02/16/21 01/30/24 History allopurinol 100 mg tablet 100 mg PO BID 02/16/21 01/30/24 History carvedilol 12.5 mg tablet 25 mg PO BID 02/16/21 01/30/24 History duloxetine 20 mg capsule,delayed 20 mg PO DAILY 02/16/21 01/30/24 History release acetaminophen 500 mg tablet 500 mg PO Q6H 01/17/24 01/30/24 History (Tylenol Extra Strength) benzonatate 100 mg capsule 100 mg PO TID PRN Cough 01/17/24 01/30/24 History bumetanide 2 mg tablet 2 mg PO DAILY 01/17/24 01/30/24 History dextromethorphan-guaifenesin 30 1 tablet PO Q12H PRN Congestion 01/17/24 01/17/24 History mg-600 mg tablet extended [id number] hr (Mucinex DM) empagliflozin 10 mg tablet 10 mg PO DAILY 01/17/24 01/30/24 History (Jardiance) hydralazine 25 mg tablet 25 mg PO BID 01/17/24 01/30/24 History lidocaine 5 % topical patch 1 patch topical DAILY PRN Pain 01/17/24 01/30/24 History fjxpoedpp-YTRJ-ibnromsj 6 mg-30 2 tablet PO HS 01/17/24 01/30/24 History mg-50 mg tablet potassium chloride 20 mEq/15 mL 20 meq PO DAILY 01/17/24 01/30/24 History oral liquid rivaroxaban 15 mg tablet (Xarelto) 15 mg PO DAILY 01/17/24 01/30/24 History sacubitril 24 mg-valsartan 26 mg 1 tablet PO BID 01/17/24 01/30/24 History tablet (Entresto) bumetanide 1 mg tablet 1 mg PO HS 01/30/24 01/30/24 History bumetanide 1 mg tablet 1 mg PO HS PRN Weight Gain 01/30/24 01/30/24 History ferrous sulfate 325 mg (65 mg 325 mg PO DAILY 01/30/24 01/30/24 History iron) tablet,delayed release tramadol 50 mg tablet 50 mg PO TID PRN Pain 01/30/24 01/30/24 History Sedation/Anesthesia: No previous sedation/anesthesia problems (including family history). [facility] Past Medical History Medical History Arthritis Arthritis of right knee Atrial fibrillation BMI 29.0-29.9,adult Chronic anemia Chronic anticoagulation Gout Gout of right knee Heart disease Heart failure Hyperlipidemia Hypertension Hypothyroidism Inflammation around joint Kidney disease Mass of both breasts on mammogram Pacemaker Thyroid disorder Uterine cancer Surgical History Surgical History H/O: hysterectomy Family History Family History Mother Family history of malignant neoplasm of cervix Father Family history of coronary artery disease Hypertension Social History Social History Smoking status: Never smoker Alcohol intake: current Do You Feel Safe in your Home?: Yes Lack of Transportation: No Lack of Food: Never
--- NOTE | 2024-01-30 12:23 | PM.OP ---
Procedure Note - Brief Procedure Note - Brief Date of procedure: 01/30/24 lila Post-op diagnosis: Other (s/p generator change) Procedure performed: Conscious sedation Generator change Surgeon: Marii Augustine MD Findings: Uneventful BiV CD generator change Description of procedure: Uneventful BiV CD generator change Complications: No immediate complications Condition: Stable Disposition: Observation
--- NOTE | 2024-01-30 12:34 | W.PM.PROC2 ---
Procedure Note - Detailed Date of Procedure 01/30/24 Pre-op Diagnosis [employer] BiV ICD at elective replacement interval Post-op Diagnosis Other ( status post generator change) Procedure Performed Conscious sedation Generator change Surgeon Marii Augustine MD Anesthesia Local ( with conscious sedation) Indications Marisol Meza is an 88 y.o. female with a history of chronic CHF, primarily diastolic at this point, on home O2.? 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 She has persistent AFib on chronic anticoagulation with Xarelto and she has a biventricular ICD.? The ICD has reached PHIL and she is here for a generator change.? 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 She is feeling well today, has held her Xarelto with last dose on Monday.? In addition, she will and be needing bilateral breast biopsies in the near future. Findings Pacing leads intact, two abandoned leads present Description of Procedure PROCEDURE: Conscious sedation Generator change UNDERLYING RHYTHM: atrial fib CONSCIOUS SEDATION: Assessment: The patient has no history of anesthesia problems. The oropharynx is clear. The patient was deemed to be a good candidate for conscious sedation. The patient had continuous hemodynamic and oximetric monitoring during the procedure. Start time: 11 Completion time: 1221 Total conscious sedation time: 50 Medications: fentanyl 75 mcg IV push Trained observer: Dee Land RN Outcome: The patient tolerated the procedure well with no complications. PROCEDURE: After informed consent, the patient is brought to the clinical lab scientist and the left prepectoral area was prepped and draped in usual fashion. The patient was given a prophylactic antibiotic intravenously with Ancef IVP. After conscious sedation as described above, the area was anesthetized with 1% lidocaine. A skin incision is made with the Plasma Blade and carried down to the pacing capsule which was also incised. Hemostasis is obtained using the Plasma Blade. The lead/s was/were freed from the underlying capsule and inspected and were found to be intact. The pulse generator was delivered from the pocket. The lead/s was/were disconnected from the existing device and reconnected to the new device. A gentle tug could not remove it/them. The device and lead/s was/were interrogated and found to be functioning appropriately. The area was copiously irrigated with antibiotic-containing solution. The device was placed in a TyRx pouch and replaced in the pocket. The subcutaneous tissues were closed in a two-layer fashion with interrupted 2 0 Vicryl sutures and the skin was closed in a continuous fashion using 4 0 Vicryl. The area was cleansed, an Aquacel dressing applied. The patient tolerated the procedure well with no complications. Estimated blood loss was negligible. THRESHOLD INFORMATION: RV lead: threshold 0.7 volts at 0.4 milliseconds, impedance 580 Ohms, shock impedance 75 Ohms LV lead: Threshold 0.5 volts at 1.0 milliseconds, impedance 612 Ohms PROGRAMMED PARAMETERS: VVIR 70-130 V-tach at 180 beats per minute starting with anti tachy pacing in defibrillations, VFib 210 beats per minute quick convert than defibrillate Implants DEVICE INFORMATION: New pulse generator: [employer] model G124: [employer] D, serial [id number] Existing left ventricular lead: Guidant model 4554, serial [id number], implanted 01/31/2014 Existing right ventricular lead: [employer] model 0292, serial [id number], implanted 01/31/2014 Two abandoned leads are present. Estimated Blood Loss 5 (cc's) Complications No immediate complications Condition Stable Disposition Observation
[2024-01-30 12:36] VITALS: BP 136/58; PULSE 69; RESP 12; O2SAT 100
[2024-01-30 12:45] VITALS: BP 145/61; PULSE 70; RESP 14; O2SAT 98
[2024-01-30 13:00] VITALS: BP 160/71; PULSE 70; RESP 14; O2SAT 100
[2024-01-30 13:15] VITALS: BP 160/71; PULSE 70; RESP 17; O2SAT 99
[2024-01-30 13:30] VITALS: BP 147/48; PULSE 78; RESP 17; O2SAT 95
== END 2024-01-30 13:48 | disposition home or self-care (01) ==
PROVIDERS: PCP Family Medicine; Visit Provider Internal Medicine Cardiovascular Disease
PROC: 0JPT0PZ Removal of Cardiac Rhythm Related Device from Trunk Subcutaneous Tissue and Fascia, Open Approach (ICD-10-PCS; CPT 33264; principal; 2024-01-30 10:00)
DX: Z45.02 Encounter for adjustment and management of automatic implantable cardiac defibrillator (principal); I11.0 Hypertensive heart disease with heart failure; I50.32 Chronic diastolic (congestive) heart failure; I42.9 Cardiomyopathy, unspecified; I08.1 Rheumatic disorders of both mitral and tricuspid valves; I48.91 Unspecified atrial fibrillation; D64.9 Anemia, unspecified; E03.9 Hypothyroidism, unspecified; E78.5 Hyperlipidemia, unspecified; M10.9 Gout, unspecified; Z79.84 Long term (current) use of oral hypoglycemic drugs; Z79.01 Long term (current) use of anticoagulants; Z85.850 Personal history of malignant neoplasm of thyroid; Z85.42 Personal history of malignant neoplasm of other parts of uterus
CPT/HCPCS: 33264; 36415; 80048; 85025; C1882; J0690; J2250; J3010; J7040